=== PATIENT | male | born 1950 | race Caucasian/White ===

== ENCOUNTER → 2020-07-04 | Outpatient (CLI) | payer BC | LOC: LAB SHORT 08:12 | DX: D49.2 Neoplasm of unspecified behavior of bone, soft tissue, and skin (principal); L82.1 Other seborrheic keratosis | CPT/HCPCS: 88305 ==

== ENCOUNTER 2022-01-15 08:03 | Day surgery (SDC) | payer MEDICARE ==
[~2022-01-15] VITALS: Ht 175.3 cm; Wt 93.6 kg
[~2022-01-15 08:03] MED LIST: ATOR20 PO; ESCI20 PO; IBUP600 PO; LEVOTHYROXINE PO; LISI20 PO; NEURONTIN300 MG PO; TAMS.4ER PO
--- NOTE | 2022-01-15 09:47 | NUR ---
01/15/22 0947 Arnav Shah HISTORY, CHART, MEDICATIONS AND ALLERGIES REVIEWED BEFORE START OF PROCEDURE. PATIENT CONFIRMS NPO STATUS AND AGREES WITH SCHEDULED PROCEDURE. 3-LEAD EKG REVIEWED WITH PHYSICIAN PRIOR TO START OF PROCEDURE. MONITOR INTACT WITH CONTINUOUS PULSE OXIMETRY,CAPNOGRAPHY, 3-LEAD EKG, INTERMITTENT BP. SUPPLEMENTAL O2 TO BE TITRATED THROUGHOUT PROCEDURE TO MAINTAIN O2 SATURATION ABOVE 90%. PATIENT DETERMINED TO BE ASA APPROPRIATE FOR PROPOFOL SEDATION PRIOR TO START OF PROCEDURE BY DR. HERNANDEZ.
== END 2022-01-15 23:19 | disposition home or self-care (01) ==
LOC: ORSCMMR 08:03 → ORD 09:00 → ORSCMMR 23:19
PROVIDERS: Internal Medicine Gastroenterology
PROC: 0DB68ZX Excision of Stomach, Via Natural or Artificial Opening Endoscopic, Diagnostic (ICD-10-PCS; principal; 2022-01-15 09:00)
PROC: 0DB48ZX Excision of Esophagogastric Junction, Via Natural or Artificial Opening Endoscopic, Diagnostic (ICD-10-PCS; principal; 2022-01-15 09:00)
PROC: 0DB58ZX Excision of Esophagus, Via Natural or Artificial Opening Endoscopic, Diagnostic (ICD-10-PCS; principal; 2022-01-15 09:00)
DX: R13.14 Dysphagia, pharyngoesophageal phase (principal); E03.9 Hypothyroidism, unspecified; I10 Essential (primary) hypertension; E78.00 Pure hypercholesterolemia, unspecified; F32.A Depression, unspecified; Z79.899 Other long term (current) drug therapy
CPT/HCPCS: 88305; 88342; A9270; C1726; J2704; J7120

== ENCOUNTER → 2023-03-24 | Outpatient (CLI) | payer OTHER ==
[2023-03-24 16:38] LABS: BASOPHILS ABSOLUTE AUTO 0.02 K/mm3 (0.00-0.23); BASOPHILS PERCENT AUTO 0 % (0-2); EOSINOPHILS PERCENT AUTO 2 % (0-6); Hematocrit 46.2 % (37.0-53.0); Hemoglobin 15.5 g/dL (13.5-17.5); IMMATURE GRAN ABSOLUTE AUTO 0.01 K/mm3 (0.00-0.10); IMMATURE GRAN PERCENT AUTO 0 % (0-1); LYMPHOCYTES ABSOLUTE AUTO 1.34 K/mm3 (0.84-5.20); LYMPHOCYTES PERCENT AUTO 29 % (21-46); MONOCYTES ABSOLUTE AUTO 0.36 K/mm3 (0.16-1.47); MONOCYTES PERCENT AUTO 8 % (4-13); Mean Corpuscular HGB Conc 33.5 g/dL (31.5-36.5); Mean Corpuscular Volume 99 fL (80-100); Mean Platelet Volume 10.5 fL (9.1-12.4); NEUTROPHILS ABSOLUTE AUTO 2.88 K/mm3 (1.96-9.15); NEUTROPHILS PERCENT AUTO 61 % (41-73); Platelet Count 113 K/mm3 (150-400); RDW Coefficient Variation 12.6 % (11.7-14.2); Red Blood Cell Count 4.69 M/mm3 (4.30-5.90); White Blood Cell Count 4.71 K/mm3 (4.00-11.30)
[2023-03-24 17:39] LABS: CHOL/HDL RATIO 4.4; Cholesterol 185 mg/dL (50-200); HDL Cholesterol 42 mg/dL (>39); Low Density Lipoprotein Chol 84 mg/dL (0-110); Triglycerides 295 mg/dL (30-160); Very Low Density Lipoprot Chol 59 mg/dL (6-32)
[2023-03-26 08:11] LABS: BILIRUBIN, TOTAL 0.4 mg/dL (0.0-1.2); CALCIUM, SERUM 9.3 mg/dL (8.6-10.2); GLOBULIN, TOTAL 2.3 g/dL (1.5-4.5); POTASSIUM, SERUM 4.8 mmol/L (3.5-5.2); PROTEIN, TOTAL, SERUM 6.8 g/dL (6.0-8.5)
[2023-03-26 13:12] LABS: HEMOGLOBIN A1C 6.8 % (4.8-5.6)
== END | disposition home or self-care (01) ==
LOC: LAB SHORT 13:09 → LAB 13:09
PROVIDERS: Family Medicine
DX: E78.5 Hyperlipidemia, unspecified (principal); E11.65 Type 2 diabetes mellitus with hyperglycemia; I10 Essential (primary) hypertension; E03.9 Hypothyroidism, unspecified
CPT/HCPCS: 36415; 80053; 80061; 83036; 84443; 85025

== ENCOUNTER → 2023-04-14 | Outpatient (CLI) | payer OTHER | LOC: LAB SHORT 09:36 → LAB 09:36 | DX: N39.0 Urinary tract infection, site not specified (principal) | CPT/HCPCS: 87077; 87086; 87186 ==

== ENCOUNTER 2023-08-21 17:09 | Observation (INO) | payer OTHER ==
[~2023-08-21] VITALS: Ht 175.3 cm; Wt 84.9 kg
[2023-08-21 17:51] LABS: BASOPHILS ABSOLUTE AUTO 0.03 K/mm3 (0.00-0.23); BASOPHILS PERCENT AUTO 0 % (0-2); EOSINOPHILS ABSOLUTE AUTO 0.16 K/mm3 (0.00-0.68); EOSINOPHILS PERCENT AUTO 2 % (0-6); Hematocrit 45.4 % (37.0-53.0); Hemoglobin 15.7 g/dL (13.5-17.5); IMMATURE GRAN ABSOLUTE AUTO 0.02 K/mm3 (0.00-0.10); IMMATURE GRAN PERCENT AUTO 0 % (0-1); LYMPHOCYTES ABSOLUTE AUTO 1.84 K/mm3 (0.84-5.20); LYMPHOCYTES PERCENT AUTO 25 % (21-46); MONOCYTES ABSOLUTE AUTO 0.55 K/mm3 (0.16-1.47); MONOCYTES PERCENT AUTO 8 % (4-13); Mean Corpuscular HGB 33.2 pg (26.0-34.0); Mean Corpuscular HGB Conc 34.6 g/dL (31.5-36.5); Mean Corpuscular Volume 96 fL (80-100); Mean Platelet Volume 10.2 fL (9.1-12.4); NEUTROPHILS ABSOLUTE AUTO 4.75 K/mm3 (1.96-9.15); NEUTROPHILS PERCENT AUTO 65 % (41-73); Platelet Count 210 K/mm3 (150-400); RDW Coefficient Variation 12.9 % (11.7-14.2); RDW Standard Deviation 46.1 fL (35.1-46.3); Red Blood Cell Count 4.73 M/mm3 (4.30-5.90); White Blood Cell Count 7.35 K/mm3 (4.00-11.30)
[2023-08-21 18:13] LABS: Albumin/Globulin Ratio 1.1 (0.8-1.8); Bilirubin, Total 0.7 mg/dL (0.1-1.0); Bun/Creatinine Ratio 13.5 (12.0-20.0); Calcium, Blood 8.8 mg/dL (8.5-10.1); Creatinine, Blood 1.26 mg/dL (0.60-1.20); Globulin, Blood 3.6 g/dL (2.2-4.0); Potassium, Blood 5.1 mmol/L (3.5-5.5); Total Protein, Blood 7.6 g/dL (6.4-8.2)
[2023-08-21] MEDS ORDERED: BACTRIM DS TAB1 EAC1 (21:15)
[2023-08-21] MEDS ORDERED: OMEP20ER PO (21:15)
[2023-08-21] MEDS ORDERED: BUPR75 (21:15)
[2023-08-21 21:34] LABS: Source, Urine Clean Catch
[2023-08-21 21:40] LABS: Appearance, Urine Clear (Clear); Bilirubin, Urine Neg (Neg); Blood, Urine 1+ (Neg); Color, Urine Yellow (P-Yellow); Glucose Qualitative, Urine Neg (Neg); Ketones, Urine Neg (Neg); Leukocyte Esterase, Urine Neg (Neg); Nitrite, Urine Neg (Neg); Protein, Urine Neg (Neg); Specific Gravity, Urine 1.015 (1.003-1.022); Urobilinogen, Urine NORM (Normal)
[2023-08-21 21:47] LABS: Bacteria Not Seen /hpf; Hyaline Casts 0-2 /lpf (0-2); Red Blood Cells, Urine 0-2 /hpf (0-2); Squamous Epithelial Cells Not Seen /hpf (Few); White Blood Cells, Urine 0-2 /hpf (0-5)
[2023-08-21] MEDS ORDERED: NS 1,000 ML IV SCH (22:10)
[2023-08-21 22:44] LABS: Magnesium, Blood 2.2 mg/dL (1.6-2.4); Thyroid Stimulating Hormone 3.54 uIU/mL (0.360-4.800)
[2023-08-22 00:17] LABS: Influenza A, PCR NEGATIVE (NEGATIVE); Influenza B, PCR NEGATIVE (NEGATIVE); Resp Syncytial Virus, PCR NEGATIVE (NEGATIVE); SARS-Cov-2 (COVID-19) PCR, MMC NEGATIVE (NEGATIVE)
[2023-08-22] MEDS ORDERED: Ondansetron HCl 2 MG / ML 2ML Vial IV PRN (01:00)
[2023-08-22] MEDS ORDERED: Meclizine HCl 25 MG Tab PO PRN (01:00)
[2023-08-22] MEDS ORDERED: Acetaminophen 325 MG TABLET PO PRN (01:00)
[2023-08-22] MEDS ORDERED: Aspirin 81 MG Chew PO SCH (01:00)
[2023-08-22] MEDS ORDERED: NS 1,000 ML IV ONE (01:00)
[2023-08-22 01:20] LABS: Free Thyroxine 1.09 ng/dL (0.70-1.60)
[2023-08-22 02:53] LABS: BASOPHILS ABSOLUTE AUTO 0.04 K/mm3 (0.00-0.23); BASOPHILS PERCENT AUTO 1 % (0-2); EOSINOPHILS ABSOLUTE AUTO 0.19 K/mm3 (0.00-0.68); EOSINOPHILS PERCENT AUTO 3 % (0-6); Hematocrit 43.8 % (37.0-53.0); IMMATURE GRAN ABSOLUTE AUTO 0.02 K/mm3 (0.00-0.10); IMMATURE GRAN PERCENT AUTO 0 % (0-1); LYMPHOCYTES ABSOLUTE AUTO 2.38 K/mm3 (0.84-5.20); LYMPHOCYTES PERCENT AUTO 31 % (21-46); MONOCYTES ABSOLUTE AUTO 0.56 K/mm3 (0.16-1.47); MONOCYTES PERCENT AUTO 7 % (4-13); Mean Corpuscular HGB 32.9 pg (26.0-34.0); Mean Corpuscular HGB Conc 34.2 g/dL (31.5-36.5); Mean Corpuscular Volume 96 fL (80-100); Mean Platelet Volume 9.7 fL (9.1-12.4); NEUTROPHILS ABSOLUTE AUTO 4.42 K/mm3 (1.96-9.15); NEUTROPHILS PERCENT AUTO 58 % (41-73); Platelet Count 155 K/mm3 (150-400); RDW Coefficient Variation 12.9 % (11.7-14.2); RDW Standard Deviation 45.4 fL (35.1-46.3); Red Blood Cell Count 4.56 M/mm3 (4.30-5.90); White Blood Cell Count 7.61 K/mm3 (4.00-11.30)
[2023-08-22 02:54] LABS: Prothrombin Time Results 10.7 Sec (9.7-11.5)
[2023-08-22 03:09] LABS: Albumin, Blood 3.7 g/dL (3.4-5.0); Albumin/Globulin Ratio 1.2 (0.8-1.8); Bilirubin, Total 0.5 mg/dL (0.1-1.0); Calcium, Blood 8.9 mg/dL (8.5-10.1); Creatinine, Blood 1.13 mg/dL (0.60-1.20); Globulin, Blood 3.2 g/dL (2.2-4.0); Potassium, Blood 4.3 mmol/L (3.5-5.5); Total Protein, Blood 6.9 g/dL (6.4-8.2)
[2023-08-22 04:45] VITALS: BP 123/73
--- NOTE | 2023-08-22 06:36 | NUR ---
SHIFT SUMMARY: PATIENT FULLY ORIENTED, COOPERATIVE. NSR ON TELE. GLASSES, DEAF IN LEFT EAR, RIGHT ARM HAS LIMITED RANGE OF MOTION. PATIENT MAY HAVE MRI TODAY. NPO DIET ORDER. PATIENT HAD POOR SLEEP TONIGHT.
[2023-08-22 07:17] VITALS: BP 134/92
[2023-08-22] MEDS ORDERED: NS 1,000 ML IV SCH (08:40)
[2023-08-22] MEDS ORDERED: Enoxaparin 40 MG/0.4 ML SYR SC SCH (09:00)
[2023-08-22] MEDS ORDERED: Tamsulosin HCl 0.4 MG Cap PO SCH (09:00)
[2023-08-22] MEDS ORDERED: Gabapentin 300 MG Cap PO SCH (09:00)
[2023-08-22] MEDS ORDERED: Citalopram Hydrobromide 20 MG Tab PO SCH (09:00)
[2023-08-22] MEDS ORDERED: Omeprazole 20 MG CapCR PO SCH (09:00)
--- NOTE | 2023-08-22 12:08 | NUR ---
THIS RN PROVIDING BREAK COVERAGE FOR PRIMARY RN.
[2023-08-22 15:05] VITALS: BP 142/61
--- NOTE | 2023-08-22 18:33 | NUR ---
SHIFT SUMMARY PATIENT ALERT AND ORIENTED. PATIENT ABLE TO AMBULATE TO BR WITH WALKER AND STAND BY ASSIST. CAROTID STUDY, ECHO, AND PT EVAL COMPLETED. WAITING ON NRI STUDY. MRI SCREENING FORM COMPLETED. PATIENT HAS HX OF SIGNIFICANT NECK SURGERIES AND FUSIONS. REPORTED SIMILAR SITUATION IN PAST WHERE PATIENT HAD SIMILAR SYMPTOMS AND FOUND TO HAVE A SPINAL CYST ON CERVICAL SPINE.
[2023-08-22 19:18] VITALS: BP 171/63
[2023-08-22 19:53] VITALS: BP 162/67
[2023-08-22] MEDS ORDERED: HydrALAZINE HCl 25 MG Tab PO PRN (20:35)
[2023-08-22] MEDS ORDERED: Lisinopril 10 MG Tab PO SCH (21:00)
[2023-08-23 05:06] VITALS: BP 159/72
--- NOTE | 2023-08-23 05:31 | NUR ---
SHIFT SUMMARY: A&OX4 PLEASANT AND COOPERTIVE. SPOUSE AT BEDSIDE. NUTRITION TECH MED LIST RECEIVED AND MD CALLED TO UPDATE MEDS. PT HAD NO INCIDENTS. HYPERTENSION INITIALLY MD ALERTED AND NUTRITION TECH LISINOPRIL STARTED WELL PRN ONBOARD FOR COVERAGE. NEW PIV STARTED D/T LEAKING. PT CALL LIGHT APPROPRIATE TO BATHROOM. FALL PRECAUTION SOCKS IN PLACE WITH BED LOCKED AND LOW.
[2023-08-23 05:46] LABS: BASOPHILS ABSOLUTE AUTO 0.04 K/mm3 (0.00-0.23); BASOPHILS PERCENT AUTO 1 % (0-2); EOSINOPHILS ABSOLUTE AUTO 0.21 K/mm3 (0.00-0.68); EOSINOPHILS PERCENT AUTO 3 % (0-6); Hematocrit 42.1 % (37.0-53.0); Hemoglobin 14.4 g/dL (13.5-17.5); IMMATURE GRAN ABSOLUTE AUTO 0.02 K/mm3 (0.00-0.10); IMMATURE GRAN PERCENT AUTO 0 % (0-1); LYMPHOCYTES ABSOLUTE AUTO 2.12 K/mm3 (0.84-5.20); LYMPHOCYTES PERCENT AUTO 31 % (21-46); MONOCYTES ABSOLUTE AUTO 0.54 K/mm3 (0.16-1.47); MONOCYTES PERCENT AUTO 8 % (4-13); Mean Corpuscular HGB 32.7 pg (26.0-34.0); Mean Corpuscular HGB Conc 34.2 g/dL (31.5-36.5); Mean Corpuscular Volume 96 fL (80-100); Mean Platelet Volume 9.6 fL (9.1-12.4); NEUTROPHILS ABSOLUTE AUTO 3.95 K/mm3 (1.96-9.15); NEUTROPHILS PERCENT AUTO 57 % (41-73); Platelet Count 151 K/mm3 (150-400); RDW Coefficient Variation 12.6 % (11.7-14.2); RDW Standard Deviation 44.3 fL (35.1-46.3); Red Blood Cell Count 4.41 M/mm3 (4.30-5.90); White Blood Cell Count 6.88 K/mm3 (4.00-11.30)
[2023-08-23] MEDS ORDERED: Levothyroxine Sodium 0.05 MG Tab PO SCH (06:00)
[2023-08-23 06:08] LABS: Bun/Creatinine Ratio 16.6 (12.0-20.0); Calcium, Blood 9.4 mg/dL (8.5-10.1); Creatinine, Blood 0.91 mg/dL (0.60-1.20); Magnesium, Blood 2.3 mg/dL (1.6-2.4); Phosphorus, Blood 3.3 mg/dL (2.5-4.9); Potassium, Blood 4.2 mmol/L (3.5-5.5)
[2023-08-23 06:28] LABS: U Amphetamine Screen Not Detected; U Barbituate Screen Not Detected; U Benzodiazapine Screen DETECTED; U Buprenorphine Screen Not Detected; U Cannabinoids Screen Not Detected; U Cocaine Screen Not Detected; U Methadone Screen Not Detected; U Methamphetamine Screen Not Detected; U Opiates Screen Not Detected; U Oxycodone Screen Not Detected; U Phencyclidine Screen Not Detected
[2023-08-23 07:41] VITALS: BP 112/70
[2023-08-23] MEDS ORDERED: Atorvastatin 10 MG Tab PO SCH (09:00)
[2023-08-23] MEDS ORDERED: Dutasteride 0.5 MG Cap PO SCH (09:00)
[2023-08-23] MEDS ORDERED: ACET325 PO (11:11)
[2023-08-23] MEDS ORDERED: ASPI81CH PO (11:11)
[2023-08-23] MEDS ORDERED: METF500 PO (11:12)
[2023-08-23] MEDS ORDERED: DUTA.5 PO (11:12)
[2023-08-23] MEDS ORDERED: Prinivil10 MG PO (11:12)
--- NOTE | 2023-08-23 12:50 | NUR ---
report received verified pt a/o x 3-4 neuro ataxia still seems to be an issue awaiting mri for cva confirmation. md at bedside stated pt could discharge if MRI cleared. 1000 pt to MRI. 1230pt discharged instructions given and iv dced.
== END 2023-08-23 12:30 | disposition home or self-care (01) ==
LOC: ER 17:09 → MEDS 17:10
PROVIDERS: Hospitalist; Student in an Organized Health Care Education/Training Program; ADMIT Internal Medicine
DX: R47.01 Aphasia (principal); N17.9 Acute kidney failure, unspecified; R26.0 Ataxic gait; R47.81 Slurred speech; H55.00 Unspecified nystagmus; R42 Dizziness and giddiness; N40.0 Benign prostatic hyperplasia without lower urinary tract symptoms; E78.5 Hyperlipidemia, unspecified; E03.9 Hypothyroidism, unspecified; I10 Essential (primary) hypertension; Z79.899 Other long term (current) drug therapy
CPT/HCPCS: 0241U; 36415; 70450; 70551; 80048; 80053; 81001; 83735; 83880; 84100; 84145; 84439; 84443; 84484; 85025; 85610; 92523; 92610; 93005; 93010; 93306; 93880; 96360; 96361; 96372; 97110; 97112; 97161; 97166; 97530; 97535; 99285-25; A9270; G0378; J1650; J7030

== ENCOUNTER → 2024-07-20 | Outpatient (CLI) | payer OTHER ==
[~2024-07-20] MED LIST changes: +ACET325 PO; +ASPI81CH PO; +BACTRIM DS TAB1 EAC1; +BUPR75; +DUTA.5 PO; +METF500 PO; +OMEP20ER PO; +Prinivil10 MG PO
[2024-07-21 16:05] LABS: Microalb/Creat Ratio UR, Rand 6.788 mg/g (0.000-30.000); Microalbumin, Random Urine 7.06 mg/L (0.000-20.000)
== END | disposition home or self-care (01) ==
LOC: LAB SHORT 23:10 → LAB 23:10
PROVIDERS: Family Medicine
DX: E11.65 Type 2 diabetes mellitus with hyperglycemia (principal)
CPT/HCPCS: 82043; 82570